=== PATIENT | female | born 1945 | race Asian ===

== ENCOUNTER 2018-05-25 11:22 | Emergency (ER) | payer OTHER ==
[2018-05-25] MEDS ORDERED: AMIODARONE HCL 150 MG/3 ML INJ IV ONE (11:23)
[2018-05-25] MEDS ORDERED: EPINEPHrine 1 MG/10 ML SYR IV ONE (11:23)
[2018-05-25] MEDS ORDERED: Caclcium Chloride 10% INJ SYR IV ONE (11:23)
[2018-05-25] MEDS ORDERED: NA CHLORIDE 0.9% 1,000 ML IV ONE (11:23)
[2018-05-25] MEDS ORDERED: NA CHLORIDE 0.9% 500 ML IV ONE (11:23)
[2018-05-25] MEDS ORDERED: EPINEPHrine 1 MG/10 ML SYR ONE (11:50)
--- NOTE | 2018-05-25 12:09 | ER ---
Nurse's Notes [facility] Name: Benigno Smith Age: 73 yrs Sex: Female : 1945 Arrival Date: 05/25/2018 Time: 11:27 Bed 3 Private MD: Diagnosis: Cardiac arrest Presentation: 05/25 11:20 Presenting complaint: EMS states: pt was seen 10 minutes prior to our arrival, tw2 unwitnessed arrest, spouse found her and started CPR, police arrived and continued CPR, we started CPR, got ROSC 19 minutes ago, inferior stemi shown w/ROSC, hx: htn, 6 rounds Epi given, 1 bicarb, ET tube 6.5, 24 at teeth, thumper applied for CPR. Transition of care: patient was not received from another setting of care. Onset of symptoms was May 25, 2018. Risk Assessment: Do you want to hurt yourself or someone else? Patient reports no desire to harm self or others. Initial Sepsis Screen: Does the patient meet any 2 criteria? Temp <36.0*C (96.8*F)) or > 38.3*C (100.4*F). Altered Mental Status. Does the patient have a suspected source of infection? No. Patient's initial sepsis screen is negative. Care prior to arrival: CPR via thumper. 11:20 Method Of Arrival: EMS: [facility] tw2 11:20 Acuity: REBECCA 1 tw2 Historical: - Allergies: 12:51 Unable to obtain; sv - Home Meds: 12:48 Diltiazem Oral [Active]; atorvastatin oral oral [Active]; Centrum oral oral [Active]; sv Vitamin C Oral [Active]; losartan oral oral [Active]; - PMHx: 12:34 Hypertension; sv - PSHx: 12:51 Unable to obtain; sv - Immunization history:: Adult Immunizations. - Social history:: Patient/guardian denies using alcohol, street drugs, The patient lives with family, Smoking status: unknown. - Family history:: not pertinent. - Ebola Screening: : Unable to complete screening because. Screenin:49 Abuse screen: unknown. sv Assessment: 11:23 Cardiac rhythm is PEA. tw2 11:23 CPR assessment: unresponsive, Ambu ventilation. Cardiac rhythm is CPR continued via tw2 thumper at this time per Dr. Lizama. 11:27 CPR assessment: unresponsive, Ambu ventilation. Cardiac rhythm is CPR continued via tw2 thumper at this time per Dr. Lizama. 11:29 CPR assessment: unresponsive, Ambu ventilation. Cardiac rhythm is CPR continued via tw2 thumper at this time per Dr. Lizama, US at bedside to check cardiac activity. 11:31 CPR assessment: unresponsive, Ambu ventilation. CPR assessment: No palpable pusle at tw2 femoral or carotid, via US per Dr. Zepeda mild ventricular movement noted via US, PEA on monitor. Cardiac rhythm is CPR continued via thumper at this time per Dr. Lizama. 11:33 CPR assessment: CPR continued via thumper at this time per Dr. Lizama. tw2 11:35 CPR assessment: unresponsive, Ambu ventilation. Cardiac rhythm is CPR continued via tw2 thumper at this time per Dr. Lizama. 11:37 CPR assessment: unresponsive, Ambu ventilation. Cardiac rhythm is SHOCK ordered and tw2 delivered at [address] Lizama, CPR continued via thumper at this time. Cardiac rhythm is V fib. 11:39 CPR assessment: unresponsive, Ambu ventilation. Cardiac rhythm is SHOCK delivered, CPR tw2 continued via thumper at this time per Dr. Lizama. 11:43 CPR assessment: unresponsive, Ambu ventilation. tw2 11:45 CPR assessment: unresponsive, Ambu ventilation. Cardiac rhythm is via US, no cardiac tw2 movement seen on US monitor, no pulse. 11:53 CPR assessment: unresponsive, Ambu ventilation. tw2 12:13 Reassessment: Spoke with Gretchen at [facility]. Pt is a candidate for organ donation. She sv will be calling the family. Case #-[id number]. 13:17 Reassessment: Pt to [facility]. sv Vital Signs: 12:01 Temp 96(R); tw2 ED Course: 11:25 Initial lab(s) drawn, by me, sent to lab. Inserted saline lock: 20 gauge in right dh3 antecubital area, using aseptic technique. Blood collected. 11:27 Patient arrived in ED. bd 11:40 Patient has correct armband on for positive identification. sv 11:40 Arm band placed on right wrist. sv 11:49 Mariama Irvin, RN is Primary Nurse. tw2 11:49 notified jorge a diallo to have the house manager program manager transportation to come to er. bd 11:52 Triage completed. tw2 11:57 Byron Lizama MD is Attending Physician. ma2 12:07 Byron Lizama MD is Pronouncing Provider. ma2 Administered Medications: 11:23 Drug: EPINEPHrine 0.1mg/mL 1:10,000 1 mg Route: IVP; Site: left antecubital; tw2 11:25 Follow up: Response: No adverse reaction; No change in condition tw2 11:23 Drug: NS 0.9% 1000 ml Route: IV; Rate: 1 bolus; Site: left antecubital; tw2 12:46 Follow up: Response: No adverse reaction; IV Status: Completed infusion; IV Intake: tw2 1000ml 11:28 Drug: EPINEPHrine 0.1mg/mL 1:10,000 1 mg Route: IVP; Site: left antecubital; tw2 11:30 Follow up: Response: No adverse reaction tw2 11:30 Drug: EPINEPHrine 0.1mg/mL 1:10,000 1 mg Route: IVP; Site: left antecubital; tw2 11:32 Follow up: Response: No adverse reaction; No change in condition tw2 11:34 Drug: EPINEPHrine 0.1mg/mL 1:10,000 1 mg Route: IVP; Site: left antecubital; tw2 11:40 Follow up: Response: No adverse reaction; No change in condition tw2 11:34 Drug: Sodium Bicarbonate 1 amp Route: IVP; Site: left antecubital; tw2 11:38 Follow up: Response: No adverse reaction; No change in condition tw2 11:34 Drug: Calcium Chloride 10% 10 ml Route: IVP; Site: left antecubital; tw2 11:40 Follow up: Response: No adverse reaction; No change in condition tw2 11:37 Drug: EPINEPHrine 0.1mg/mL 1:10,000 1 mg Route: IVP; Site: left antecubital; tw2 11:40 Follow up: Response: No adverse reaction; No change in condition tw2 11:39 Drug: EPINEPHrine 0.1mg/mL 1:10,000 1 mg Route: IVP; Site: left antecubital; tw2 11:43 Follow up: Response: No adverse reaction; No change in condition tw2 11:41 Drug: EPINEPHrine 0.1mg/mL 1:10,000 1 mg Route: IVP; Site: left antecubital; tw2 11:43 Follow up: Response: No adverse reaction; No change in condition tw2 11:43 Drug: amiodarone 300 mg Route: IVP; Site: left antecubital; tw2 11:45 Follow up: Response: No adverse reaction; No change in condition tw2 11:43 Drug: EPINEPHrine 0.1mg/mL 1:10,000 1 mg Route: IVP; Site: left antecubital; tw2 11:45 Follow up: Response: No adverse reaction; No change in condition tw2 Point of Care Testing: Blood Glucose: 11:22 Blood Glucose: 353 mg/dL; tw2 Ranges: Intake: 12:46 IV: 1000ml; Total: 1000ml. tw2 Outcome: 11:46 Outcome Patient tw2 11:46 Patient : Time of 11:46 Pronounced by Byron Lizama MD 11:46 Condition: 13:16 Patient : Body to home. sv 13:18 Patient left the ED. sv Signatures: Ysabel Hector Stephanie, RN RN sv Mariama Irvin RN RN 2 H[facility] Lom[facility] Byron Lizama MD MD pr2 Corrections: (The following items were deleted from the chart) 11:55 11:53 EPINEPHrine 0.1mg/mL 1:10,000 1 mg IVP in left antecubital tw2 tw2 11:56 11:30 EPINEPHrine 0.1mg/mL 1:10,000 1 mg IVP in left antecubital tw2 tw2 11:56 11:30 EPINEPHrine 0.1mg/mL 1:10,000 1 mg IVP in left antecubital tw2 tw2 12:01 11:52 Pulse Ox 68% ET / Ambu; tw2 tw2 12:15 11:20 Presenting complaint: EMS states: pt was seen 10 minutes prior to our arrival, tw2 unwitnessed arrest, spouse found her, we started CPR, got ROSC 19 minutes ago, inferior stemi shown w/ROSC, hx: htn, 6 rounds Epi given, 1 bicarb, ET tube 6.5, 24 at teeth, allisonumper applied for CPR tw2 13:16 12:13 Reassessment: Spoke with Gretchen at [facility]. Pt is a candidate for organ sv donation. She will be calling the family. sv
--- NOTE | 2018-05-25 12:09 | EDPHYS ---
Physician Documentation [facility] Name: Benigno Smith Age: 73 yrs Sex: Female : 1945 Arrival Date: 05/25/2018 Time: 11:27 Bed 3 Private MD: ED Physician Byron Lizama HPI: 05/25 11:58 This 73 yrs old Female presents to ER via EMS with complaints of CPR. ma2 11:58 This 73 yrs old Female presents to ER via EMS with complaints of CPR. ma2 11:58 This 73 yrs old Female presents to ER via EMS with complaints of CPR. ma2 11:58 Preceding the arrest, the patient collapsed. The arrest occurred at home. Pre-hospital ma2 course: EMS care prior to arrival: initiation of ACLS, intubation ACLS details:. Unable to obtain HPI due to cardiac arrest . collapsed at street, EMS started by police and continued by EMS, after 30 min of CPR arrived to the ED, intubated bu EMS and has good equal air entry bilaterally, CPR continued with PEA initially then had V-fib defibrillated twice and received amiodarone she had no pulse throughout the CPR in ED that, total CPR EMS + ED > 45 min. no cardiac activity seen on bedside ech. Historical: - Allergies: 12:51 Unable to obtain; sv - Home Meds: 12:48 Diltiazem Oral [Active]; atorvastatin oral oral [Active]; Centrum oral oral [Active]; sv Vitamin C Oral [Active]; losartan oral oral [Active]; - PMHx: 12:34 Hypertension; sv - PSHx: 12:51 Unable to obtain; sv - Immunization history:: Adult Immunizations. - Social history:: Patient/guardian denies using alcohol, street drugs, The patient lives with family, Smoking status: unknown. - Family history:: not pertinent. - Ebola Screening: : Unable to complete screening because. ROS: 11:58 Unable to obtain ROS due to altered mental status. ma2 12:07 Hematologic/Lymphatic: Negative for swollen nodes, abnormal bleeding, and unusual ma2 bruising. Exam: 11:58 Eyes: Pupils: dilated, bilaterally. ma2 11:58 Chest/axilla: intubated with equal air movement . 11:58 Cardiovascular: Rate: no pulse, no cardiac activity . 11:58 Respiratory: Respirations: no respiratory effort . 11:58 Neuro: GCS 3. 12:07 ENT: Nares patent. No nasal discharge, no septal abnormalities noted. Tympanic ma2 membranes are normal and external auditory canals are clear. Oropharynx with no redness, swelling, or masses, exudates, or evidence of obstruction, uvula midline. Mucous membranes moist. Vital Signs: 12:01 Temp 96(R); tw2 Procedures: 11:58 CPR: The presenting cardiac rhythm is PEA. the patient was intubated prior to arrival, ma2 Compressions: began prior to arrival. Meds given: Epinephrine Amiodarone, bicarb . Defibrillation: 300 joules X 3. despite ED evaluation and treatment, the patient . Family notified. MDM: 11:58 Patient medically screened. ma2 11:58 Differential diagnosis: arrythmia, cardiac arrest, respiratory arrest, renal failure. ma2 Data reviewed: vital signs, nurses notes, EMS record, EKG. Counseling: I had a detailed discussion with the patient and/or guardian regarding: the historical points, exam findings, and any diagnostic results supporting the discharge/admit diagnosis. 05/25 11:30 Order name: glucometer results - FOR PT WITH NO ID [id number] Administered Medications: 11:23 Drug: EPINEPHrine 0.1mg/mL 1:10,000 1 mg Route: IVP; Site: left antecubital; tw2 11:25 Follow up: Response: No adverse reaction; No change in condition tw2 11:23 Drug: NS 0.9% 1000 ml Route: IV; Rate: 1 bolus; Site: left antecubital; tw2 12:46 Follow up: Response: No adverse reaction; IV Status: Completed infusion; IV Intake: tw2 1000ml 11:28 Drug: EPINEPHrine 0.1mg/mL 1:10,000 1 mg Route: IVP; Site: left antecubital; tw2 11:30 Follow up: Response: No adverse reaction tw2 11:30 Drug: EPINEPHrine 0.1mg/mL 1:10,000 1 mg Route: IVP; Site: left antecubital; tw2 11:32 Follow up: Response: No adverse reaction; No change in condition tw2 11:34 Drug: EPINEPHrine 0.1mg/mL 1:10,000 1 mg Route: IVP; Site: left antecubital; tw2 11:40 Follow up: Response: No adverse reaction; No change in condition tw2 11:34 Drug: Sodium Bicarbonate 1 amp Route: IVP; Site: left antecubital; tw2 11:38 Follow up: Response: No adverse reaction; No change in condition tw2 11:34 Drug: Calcium Chloride 10% 10 ml Route: IVP; Site: left antecubital; tw2 11:40 Follow up: Response: No adverse reaction; No change in condition tw2 11:37 Drug: EPINEPHrine 0.1mg/mL 1:10,000 1 mg Route: IVP; Site: left antecubital; tw2 11:40 Follow up: Response: No adverse reaction; No change in condition tw2 11:39 Drug: EPINEPHrine 0.1mg/mL 1:10,000 1 mg Route: IVP; Site: left antecubital; tw2 11:43 Follow up: Response: No adverse reaction; No change in condition tw2 11:41 Drug: EPINEPHrine 0.1mg/mL 1:10,000 1 mg Route: IVP; Site: left antecubital; tw2 11:43 Follow up: Response: No adverse reaction; No change in condition tw2 11:43 Drug: amiodarone 300 mg Route: IVP; Site: left antecubital; tw2 11:45 Follow up: Response: No adverse reaction; No change in condition tw2 11:43 Drug: EPINEPHrine 0.1mg/mL 1:10,000 1 mg Route: IVP; Site: left antecubital; tw2 11:45 Follow up: Response: No adverse reaction; No change in condition tw2 Point of Care Testing: Blood Glucose: 11:22 Blood Glucose: 353 mg/dL; tw2 Ranges: Critical Glucose Levels:Adult <50 mg/dl or >400 mg/dl <40 mg/dl or >180 mg/dl Disposition: 11:58 . ma2 Disposition: Patient pronounced on 05/25/18 12:08 by Byron Lizama. Impression: Cardiac arrest. Signatures: Dispatcher [employer] Sosa Weinstein RN RN Mariama Irvin RN RN tw2 Byron Lizama MD MD ma2 Corrections: (The following items were deleted from the chart) 13:18 12:08 05/25/2018 12:08 Patient pronounced on 05/25/2018 at 12:08 by Byron Lizama. sv Impression: Cardiac arrest. ma2
== END 2018-05-25 13:18 ==
LOC: ER 11:22
PROC: 5A12012 Performance of Cardiac Output, Single, Manual (ICD-10-PCS; principal; 2018-05-25)
DX: I46.9 Cardiac arrest, cause unspecified (principal); I10 Essential (primary) hypertension
CPT/HCPCS: 36415; 82962; 92950; J0171 ×2; J0282; J7030; 96361; 96374; 96375; 99285